=== PATIENT | female | born 1955 | race Two or more races ===

== ENCOUNTER 2022-03-17 05:15 | Day surgery (SDC) | payer OTHER ==
[~2022-03-17] VITALS: Ht 149.9 cm; Wt 57.2 kg
[~2022-03-17 05:15] MED LIST: CALTRATE; COZAAR100 MG PO; CRESTOR10 MG PO; LOVAZA1 GM PO; SYNTHROID75 MCG PO; TOPROL XL50 M1 PO; VITAMIN D PO
== END 2022-03-17 11:05 | disposition home or self-care (01) ==
LOC: CIR.AMB 05:15
PROVIDERS: ATTEND Orthopaedic Surgery
DX: M75.01 Adhesive capsulitis of right shoulder (principal); M77.8 Other enthesopathies, not elsewhere classified; I10 Essential (primary) hypertension; E03.9 Hypothyroidism, unspecified; Z20.822 Contact with and (suspected) exposure to COVID-19; Z86.16 Personal history of COVID-19